=== PATIENT | female | born 1950 | race Caucasian/White ===

== ENCOUNTER 2018-08-10 13:33 | Day surgery (SDC) | payer MEDICARE, OTHER ==
[2018-08-10 14:07] VITALS: RESP 16
[2018-08-10] MEDS ORDERED: TRIAMCINOLONE ACETONIDE 40 MG/ML SUS ONE (14:54)
[2018-08-10] MEDS ORDERED: BUPIVACAINE HCL 0.25% MPF 30 ML SOL INFIL ONE (14:54)
[2018-08-10 15:13] VITALS: BP 136/81; PULSE 74; TEMP 98.6; O2SAT 99
== END 2018-08-10 15:45 | disposition home or self-care (01) | DRG 552 ==
LOC: SURG 13:33
PROVIDERS: ATTEND Nurse Anesthetist, Certified Registered
DX: M51.17 Intervertebral disc disorders with radiculopathy, lumbosacral region (principal)
CPT/HCPCS: J3300

== ENCOUNTER 2019-07-25 09:10 | Day surgery (SDC) | payer MEDICARE, BC ==
[2019-07-25] MEDS ORDERED: DEXAMETHASONE SOD PHOS PF 10 MG/ML SOL IJ ONE (09:43)
[2019-07-25] MEDS ORDERED: BUPIVACAINE HCL 0.25% MPF 30 ML SOL INFIL ONE (09:43)
[2019-07-25 09:58] VITALS: RESP 16
[2019-07-25 10:02] VITALS: PULSE 72
[2019-07-25 10:10] VITALS: BP 141/60; TEMP 96.7; O2SAT 99
== END 2019-07-25 10:40 | disposition home or self-care (01) | DRG 552 ==
LOC: SURG 09:10
PROVIDERS: ATTEND Nurse Anesthetist, Certified Registered
DX: M51.17 Intervertebral disc disorders with radiculopathy, lumbosacral region (principal); M25.511 Pain in right shoulder; M79.18 Myalgia, other site
CPT/HCPCS: J1100

== ENCOUNTER 2019-08-08 09:08 | Day surgery (SDC) | payer MEDICARE, BC | END 2019-08-08 10:26 | disposition home or self-care (01) | LOC: SURG 09:08 ==